=== PATIENT | male | born 1970 | race Caucasian/White ===

== ENCOUNTER 2021-01-25 11:49 | Day surgery (SDC) | payer BC | END 2021-01-25 16:09 | disposition home or self-care (01) | LOC: CSHSDC/OP 11:49 | PROVIDERS: ATTEND Internal Medicine | DX: Z23 Encounter for immunization (principal); U07.1 COVID-19 | CPT/HCPCS: 96365; J3490; M0243; Q0244 ==

== ENCOUNTER 2024-02-15 09:18 | Outpatient (CLI) | payer BC | END 2024-02-15 09:19 | disposition home or self-care (01) | LOC: CSHSLEEP 09:18 | PROVIDERS: ATTEND Internal Medicine | DX: G47.33 Obstructive sleep apnea (adult) (pediatric) (principal); R53.83 Other fatigue; K21.9 Gastro-esophageal reflux disease without esophagitis; R06.83 Snoring; F32.A Depression, unspecified; I10 Essential (primary) hypertension | CPT/HCPCS: 95811 ==